=== PATIENT | female | born 1985 | race Caucasian/White ===

== ENCOUNTER → 2017-05-23 | Outpatient (CLI) | payer OTHER ==
[2017-05-23 12:39] LABS: Basophils % (A) 1 %; CH 31.6; CHCM 32.8; Eosinophils % (A) 0 %; HCT 42.2 % (34.0-46.0); HDW 2.37; HGB 13.8 gm/dL (11.4-16.0); Luc # (Auto) 0.08; Luc % (Auto) 1; Lymphocytes # (A) 1.6 k/uL (1.0-4.8); Lymphocytes % (A) 25 %; MCH 31.6 pg (25.0-35.0); MCHC 32.6 g/dL (31.0-37.0); MCV 96.8 fL (80.0-100.0); Mean Platelet Volume 7.3; Monocytes # (A) 0.3 k/uL (0-1.0); Monocytes % (A) 4 %; Neutrophils # (A) 4.5 k/uL (1.3-7.7); Neutrophils % (A) 69 %; RBC 4.36 m/uL (3.80-5.40); RDW 13.5 % (11.5-15.5); WBC 6.6 k/uL (3.8-10.6); WBC (Perox) 6.88
== END | disposition home or self-care (01) ==
LOC: LABPAT 11:40
PROVIDERS: ATTEND Obstetrics & Gynecology
DX: Z01.812 Encounter for preprocedural laboratory examination (principal); O02.1 Missed abortion
CPT/HCPCS: 36415; 85025; 86850; 86900; 86901

== ENCOUNTER 2017-05-24 10:54 | Day surgery (SDC) | payer OTHER ==
[2017-05-23 14:08] VITALS: BMI 20.5
[~2017-05-24 10:54] MED LIST: Pre Op ABX Message 1 EACH MISC MISCELLANE ONE
[2017-05-24 11:08] VITALS: RESP 16
[2017-05-24] MEDS ORDERED: LACTATED RINGERS 1,000 ML IV ONE ×2 (11:28→12:00)
[2017-05-24] MEDS ORDERED: ONDANSETRON 4 MG/2 ML VIAL IVP ONE (11:29)
[2017-05-24] MEDS ORDERED: LIDOCAINE 1% 20 ML VIAL (10MG/ML) FOR IV START INTRADERMA ONE (11:29)
[2017-05-24] MEDS ORDERED: DEXAMETHASONE SOD PHOS (MDV) 100 MG/10 ML VIAL IVP ONE (11:31)
[2017-05-24] MEDS ORDERED: fentaNYL (PF) 50 MCG/ML 2 ML AMP ONE (11:42)
[2017-05-24] MEDS ORDERED: LIDOCAINE 1% INJ 10MG/ML (20 ML MDV) ONE (11:42)
[2017-05-24] MEDS ORDERED: KETOROLAC 30 MG/ML 1 ML VIAL ONE (11:42)
[2017-05-24] MEDS ORDERED: PROPOFOL 10 MG/ML 20 ML VIAL IV ONE (11:42)
[2017-05-24] MEDS ORDERED: MIDAZOLAM 2 MG/2 ML VIAL ONE (11:42)
--- NOTE | 2017-05-24 12:01 | P.OP ---
Date of Procedure: 05/24/17 Preoperative Diagnosis: Missed AB at 6-5/7 weeks' gestation. Postoperative Diagnosis: Same, pathology pending Procedure(s) Performed: Suction dilatation and curettage Anesthesia: FERNANDO Surgeon: Lilli Dominguez Estimated Blood Loss (ml): 100 IV fluids (ml): 500 Urine output (ml): 75 Pathology: other (Intrauterine curettings) Condition: stable Disposition: PACU Description of Procedure: Patient is brought to the operating suite where a mask anesthesia is administered without difficulty. She's placed in the dorsal lithotomy position. The appropriate timeout is performed to assure proper patient and procedural identification. The cervix vagina and perineal bodies are all prepped and draped in usual sterile fashion. Examination under anesthesia reveals a anteverted uterus that is smooth and mobile approximately 8 week size , negative adnexa bilaterally. Bladder is drained for approximately 75 mL of clear yellow urine. Weighted speculum was placed into the vagina and the anterior lip of the cervix is grasped with a double-tooth tenaculum. Uterus sounds to a depth of 8 cm in the anteverted position. Cervix was gently and systematically dilated with Hanks dilators. A #8 curved sterile curet is placed to the dome of the fundus and under appropriate suction pressures the uterine cavity is curettaged thoroughly. A medium sharp curette is used and the "cry of the uterus" is gently appreciated, no residual tissue is noted. The suction curet is once again placed and the cavity is noted to be completely clear. Instrumentation is removed from the vagina. All sponge needle and enhancement counts are correct. Cervix is clean and dry. Toradol is given prior to leaving the operative suite. Patient's blood type is A-, her is also negative as noted in the office. She will follow-up with me in the office in 2 weeks.
[2017-05-24 12:16] VITALS: TEMP 98.6
[2017-05-24 13:18] VITALS: BP 121/82; PULSE 84
== END 2017-05-24 13:54 | disposition home or self-care (01) ==
LOC: OR 10:54
PROVIDERS: ATTEND Obstetrics & Gynecology
DX: O02.1 Missed abortion (principal); Z83.3 Family history of diabetes mellitus; Z3A.01 Less than 8 weeks gestation of pregnancy
CPT/HCPCS: 59820; 88305; J2250; J2405; J2001; J3010; J1885; J1100; J2704

== ENCOUNTER 2019-01-13 02:53 | Inpatient (IN) | payer OTHER ==
[2019-01-13] MEDS ORDERED: diphenhydrAMINE 50 MG CAP PO PRN (03:09)
[2019-01-13] MEDS ORDERED: IBUPROFEN 600 MG TAB PO PRN (03:09)
[2019-01-13] MEDS ORDERED: HYDROCORTISONE 2.5% RECTAL CREAM 30 GM TUBE RECTAL PRN (03:09)
[2019-01-13] MEDS ORDERED: BENZOCAINE/MENTHOL SPRAY 1 GM/SPRAY AEROSOL TOPICAL PRN (03:09)
[2019-01-13] MEDS ORDERED: SIMETHICONE 80 MG CHEWABLE PO PRN (03:09)
[2019-01-13] MEDS ORDERED: ACETAMINOPHEN TAB 325 MG TAB PO PRN (03:09)
[2019-01-13] MEDS ORDERED: diphenhydrAMINE 25 MG CAP PO PRN (03:09)
[2019-01-13] MEDS ORDERED: HYDROcodone/APAP 7.5-325MG 1 EACH TAB PO PRN (03:09)
[2019-01-13] MEDS ORDERED: HYDROcodone/APAP 5-325MG 1 EACH TAB PO PRN (03:09)
[2019-01-13] MEDS ORDERED: ZOLPIDEM 5 MG TAB PO PRN (03:09)
[2019-01-13] MEDS ORDERED: WITCH HAZEL 1 EACH MED..PAD TOPICAL PRN (03:09)
[2019-01-13] MEDS ORDERED: diphenhydrAMINE 50 MG/ML 1 ML VIAL IVP PRN ×2 (03:09)
[2019-01-13] MEDS ORDERED: OXYTOCIN 20 UNITS/1000 ML NS 1,000 ML IV SCH (03:15)
--- NOTE | 2019-01-13 03:19 | P.HPOB ---
History of Present Illness H&P Date: 01/13/19 Chief Complaint: 39-0/7 weeks, precipitous delivery in the ER The patient is a 33-year-old 4 para 2012 admitted at 39-0/7 weeks by last menstrual period and confirmed by 19 week ultrasound. She presented to the emergency room having delivered the head in the car of bone attempting to enter the emergency department. The remainder of the infant was delivered prior to entry into the emergency department. The nurses from labor and delivery were in attendance at that time. I was called after the fact and at the time that the patient had been transported to the floor. Her has been uncomplicated though she is known to be group B strep positive. She is A- as is her and does not require RhoGAM as result. Obstetrical history: 4 para 2012 with 2 previous normal vaginal deliveries without complications. Current statistics are listed in history of present illness. EDC of 01/20/2019 was established by last menstrual period and confirmed by 19 week ultrasound. Laboratory workup done Schutze blood type of A- with a negative antibody screen. Rubella status is immune. The remainder of her laboratory workup was within normal limits. One hour Glucola was initially elevated but followed by a normal three-hour glucose tolerance test. Group B strep status is positive. Gynecologic history: Unremarkable with no history of any infections to include STDs. Review of Systems Review of systems is confined to history of present illness. Past Medical History Additional Past Medical History / Comment(s): MISSED AB History of Any Multi-Drug Resistant Organisms: None Reported Additional Past Surgical History / Comment(s): WISDOM TEETH REMOVED UNDER ANESTHESIA Past Anesthesia/Blood Transfusion Reactions: No Reported Reaction Smoking Status: Never smoker - Past Family History Mother Family Medical History: No Reported History Medications and Allergies Home Medications Medication Instructions Recorded Confirmed Type No Known Home Medications 05/23/17 05/23/17 History Allergies Allergy/AdvReac Type Severity Reaction Status Date / Time No Known Allergies Allergy Verified 05/23/17 14:04 Exam The patient is a well-developed, well-nourished white female in no acute distress though she is certainly surprised with the the speed of delivery. Her heart has a regular rhythm and rate without murmur. Her lungs are clear to auscultation bilaterally in all calvin. Her abdomen is non-gravid, nondistended, has normal active bowel sounds, soft, nontender, and without any palpable masses aside from uterine fundus which is palpable below the umbilicus consistent with her status. Her 70s without any cyanosis, clubbing, or edema and are nontender to palpation bilaterally. At the time of my presentation, the placenta was still in utero. After delivery, the perineum, vagina, and cervix were intact. Assessment and Plan (1) Active labor at term Current Visit: Yes Status: Acute Code(s): [id number] - SNOMED Code(s): 05931829 (2) Precipitous delivery, delivered (current hospitalization) Current Visit: Yes Status: Acute Code(s): O62.3 - PRECIPITATE LABOR SNOMED Code(s): 025804190 Plan: The patient is admitted for routine care. She will likely need to remain in the hospital for 48 hours given her positivity for group B strep which will require the be monitored for 48 hours.
--- NOTE | 2019-01-13 03:24 | P.PROBDLV ---
Vaginal Delivery Note - . Vaginal Delivery Note: The patient is a 33-year-old 4 para 2011 admitted at 39-0/7 weeks following precipitous delivery of her in her car as attempting to enter the emergency department. Her has been uncomplicated though group B strep status is positive. She is also Rh- but her is also Rh- and therefore she did not receive RhoGAM at 28 weeks. She reports that her contractions began acutely at approximately 1:15 AM after which time she had her sped from home towards emergency department. She reports that her bag of water ruptured on the property [facility] while approaching the emergency room. As her ran into the lobby to retrieve a wheelchair, the patient reports that the head began to deliver. By the time that both her and the emergency room team presented to the car, the head had delivered. The body followed shortly thereafter. The cord was clamped and cut and the and patient brought into the hospital for evaluation. She was brought to labor and delivery at which time I saw her shortly after her presentation to labor and delivery. The placenta remained in utero at that time. Cord blood could not be obtained as the cord and Pierce drained completely. The placenta was delivered spontaneously, intact but relatively lacerated, and was otherwise relatively grossly normal. There was a grossly normal, marginally inserted three-vessel cord. There were no lacerations of the perineum, vagina, or cervix. Estimated blood loss for the entire case could not be calculated as I wasn't present at the time of delivery but there was minimal ongoing bleeding at the time of my evaluation of the patient. The only complication was the precipitous nature of the delivery in the entry of the emergency department. There were no other complications. The patient and are resting comfortably at this time of the is in special care nursery for observation.
[2019-01-13 04:17] VITALS: BMI 26.4
[2019-01-13 04:22] LABS: Anisocytosis Slight; Basophils % (A) 0 %; Eosinophils # (A) 0.1 k/uL (0-0.7); Eosinophils % (A) 1 %; HCT 31.5 % (34.0-46.0); HGB 10.3 gm/dL (11.4-16.0); Lymphocytes # (A) 3.3 k/uL (1.0-4.8); Lymphocytes % (A) 24 %; MCH 27.8 pg (25.0-35.0); MCHC 32.6 g/dL (31.0-37.0); MCV 85.2 fL (80.0-100.0); Mean Platelet Volume 9.7; Monocytes # (A) 0.8 k/uL (0-1.0); Monocytes % (A) 5 %; Neutrophils # (A) 9.3 k/uL (1.3-7.7); Neutrophils % (A) 68 %; Platelet Count 211 k/uL (150-450); WBC 13.7 k/uL (3.8-10.6)
[2019-01-13] MEDS: SENNOSIDES-DOCUSATE SODIUM 1 EACH TAB PO SCH (22:50)
--- NOTE | 2019-01-14 10:08 | P.PN ---
Subjective Progress Note Date: 01/14/19 Slept well. No complaints. Objective - Vital Signs Vital signs: Vital Signs Temp 97.9 F 01/14/19 08:00 Pulse 73 01/14/19 08:00 Resp 16 01/14/19 08:00 BP 111/70 01/14/19 08:00 Pulse Ox - Constitutional General appearance: Present: average body habitus, cooperative - EENT Eyes: Present: PERRLA ENT: Present: hearing grossly normal - Neck Neck: Present: normal ROM Thyroid: bilateral: normal size - Respiratory Respiratory: bilateral: CTA - Cardiovascular Rhythm: regular - Gastrointestinal General gastrointestinal: Present: normal bowel sounds - Integumentary Integumentary: Present: normal - Neurologic Neurologic: Present: CNII-XII intact - Musculoskeletal Musculoskeletal: Present: gait normal, strength equal bilaterally - Psychiatric Psychiatric: Present: A&O x's 3, appropriate affect, intact judgment & insight - Labs CBC & Chem 7: 01/13/19 02:55
[2019-01-14] MEDS: SENNOSIDES-DOCUSATE SODIUM 1 EACH TAB PO SCH (20:50)
--- NOTE | 2019-01-15 07:36 | P.DS ---
Providers Date of admission: 01/13/19 02:53 Expected date of discharge: 01/15/19 Attending physician: Lilli Dominguez Primary care physician: Stated None Hospital Course: This is a 33-year-old white female 4 para 2012 EDC 01/20/2019 at 39 weeks gestation. Patient presented in active labor. was unremarkable, group B strep cultures positive, rubella status immune, blood type A negative. Please see admitting H&P for details. Patient actually delivered spontaneously in the emergency room parking lot. She gave to a liveborn female infant. weighed 7 lbs. 6 oz. or 3345 g. Perineal body was intact, no lacerations or defects. scores were 8 and 8 at one and 5 minutes respectively. Please see dictated delivery note for details. This morning the patient is doing well. She is voiding, ambulating and passing flatus without difficulty. Vital signs are stable and she is afebrile. Fundus is firm and in the midline, symmetric and 18 week size. Extremities are negative for edema. Perineal body is clean and dry. Breasts are not engorged. Patient is judged to be in excellent condition for discharge home. She will follow-up in the office with me in 6 weeks. She is reminded no intercourse, tampons or douching. She will use [id number] Motrin, Advil or Aleve as needed for pain. She will call with any fevers shakes or chills, foul smelling or copious lochia, with the passage of large blood clots, with any pain not alleviated by [id number] products, or indeed with any concerns. Infant will follow-up with development disability specialist as recommended. Patient Condition at Discharge: Good Plan - Discharge Summary Discharge Rx Participant: No New Discharge Prescriptions: No Action 78/Iron/Folate 1/Dha [Prenate Dha Softgel] 1 tab PO DAILY Discharge Medication List 78/Iron/Folate 1/Dha [Prenate Dha Softgel] 1 tab PO DAILY 01/13/19 [History] Follow up Appointment(s)/Referral(s): Lilli Dominguez MD [STAFF PHYSICIAN] - 6 Weeks Discharge Disposition: HOME SELF-CARE
[2019-01-15 10:09] VITALS: BP 132/81; PULSE 73; RESP 16; TEMP 98
[2019-01-15] MEDS: SENNOSIDES-DOCUSATE SODIUM 1 EACH TAB PO SCH (10:10)
== END 2019-01-15 12:45 | disposition home or self-care (01) | DRG 807 ==
LOC: 4FBP 02:53
PROVIDERS: ADMIT Obstetrics & Gynecology; ATTEND Obstetrics & Gynecology
PROC: 10E0XZZ Delivery of Products of Conception, External Approach (ICD-10-PCS; principal; 2019-01-13)
DX: O62.3 Precipitate labor (principal); Z37.0 Single live birth; O99.824 Streptococcus B carrier state complicating childbirth; Z3A.39 39 weeks gestation of pregnancy
CPT/HCPCS: 85025; 86850; 86900; 86901; 88307